=== PATIENT | female | born 1960 | race African-American/Black ===

== ENCOUNTER 2016-06-08 17:40 | Emergency (ER) | payer OTHER ==
--- NOTE | 2016-06-08 17:42 | PDOC ---
History of Present Illness - General History Source: Patient Exam Limitations: No Limitations - History of Present Illness Initial Comments: 06/08/16 18:13 The patient is a 55 year old female with no PMHx who presents to the ED with abdominal cramping since yesterday. She reports one episode of diarrhea yesterday. She reports nausea, but no vomiting. She also reports a headache today. She woke up with a headache in the frontal/ temporal regions, which has radiated to her left ear. She states that it feels like it moves around to the back of her head as well. She describes the headache as pressure. She took Tylenol and Aspirin with minimal relief. She currently rates her headache a 4-5/10, but before Aspirin it was a constant 8/ 10. She reports some associated lightheadedness. She denies photophobia, phonophobia. She also reports shoulder and left arm pain. She describes the pain as a tight knot/cramping pain. She denies numbness or tingling. She reports smoking 8 cigarettes daily. She denies alcohol or drug use. She denies recent URIs, she denies recent trauma or falls. PCP: Dr. Ximena Louise <Aminah Selby - Last Filed: 06/08/16 18:13> - General History Source: Patient Exam Limitations: No Limitations <Felicitas Spears - Last Filed: 06/09/16 18:59> - General Chief Complaint: Headache Stated Complaint: HEADACHE Time Seen by Provider: 06/08/16 17:41 Past History <Aminah Selby - Last Filed: 06/08/16 18:13> <Felicitas Spears - Last Filed: 06/09/16 18:59> - Past Medical History Allergies/Adverse Reactions: Allergies Allergy/AdvReac Type Severity Reaction Status Date / Time No Known Allergies Allergy Verified 06/08/16 17:41 Home Medications: Ambulatory Orders Butalb/Acetaminophen/Caffeine [Fioricet 50-300-40 mg Capsule] 1 each PO BID PRN #10 capsule 06/08/16 Review of Systems - Review of Systems Able to Perform ROS?: Yes Comments:: 06/08/16 18:14 GENERAL/CONSTITUTIONAL: No: fever, chills, weakness, loss of appetite. HEAD, EYES, EARS, NOSE AND THROAT: No: change in vision, ear pain, discharge, sore throat, throat swelling. CARDIOVASCULAR: No: chest pain, palpitations, syncope RESPIRATORY: No: cough, shortness of breath, wheezing, hemoptysis, stridor. GASTROINTESTINAL: + abdominal cramping, nausea, diarrhea. No: vomiting, rectal bleeding, constipation. GENITOURINARY: No: dysuria, hematuria, frequency, urgency, flank pain. MUSCULOSKELETAL: + left shoulder and arm pain. No: back pain, neck pain, joint pain SKIN AND BREASTS: No: lesions, pallor, rash or easy bruising. NEUROLOGIC: + headache, lightheadedness. No: paresthesias, weakness ENDOCRINE: No: unexplained weight gain or loss HEMATOLOGIC/LYMPHATIC: No: anemia, easy bleeding, swelling nodes <Aminah Selby - Last Filed: 06/08/16 18:13> *Physical Exam - Vital Signs Last Vital Signs Temp Pulse Resp BP Pulse Ox 98.4 F 64 17 159/99 97 06/08/16 17:40 06/08/16 17:40 06/08/16 17:40 06/08/16 18:10 06/08/16 17:40 - Physical Exam Comments: 06/08/16 18:14 GENERAL: The patient is in no acute distress. HEAD: Normal with no signs of trauma. EYES: PERRLA, EOMI, sclera anicteric, conjunctiva clear. ENT: Ears normal, TMs clear, nares patent, oropharynx clear without exudates. Moist mucous membranes. NECK: Normal range of motion, supple without lymphadenopathy, JVD, or masses. LUNGS: Breath sounds equal, clear to auscultation bilaterally. No wheezes, and no crackles. HEART:Regular rate and rhythm, normal S1 and S2 without murmur, rub or gallop. ABDOMEN: Soft, nontender, normoactive bowel sounds. No guarding, no rebound. EXTREMITIES: Normal range of motion, no edema. No clubbing or cyanosis. No erythema, or tenderness. NEUROLOGICAL: Cranial nerves II through XII grossly intact. Normal speech. No focal neurological deficits. MUSCULOSKELETAL: Back non-tender to palpation, no CVA tenderness SKIN: Warm, Dry, normal turgor, no rashes or lesions noted. <Aminah Selby - Last Filed: 06/08/16 18:13> Heart Score/ECG Review #1 ECG reviewed & interpreted by me at: 18:22 06/08/16 18:23 Sinus rhythm, rate of 66 bpm [place] nml RBBB No st elevations or depressions <Felicitas Spears - Last Filed: 06/09/16 18:59> ED Treatment Course - LABORATORY CBC & Chemistry Diagram: 06/08/16 18:00 06/08/16 18:00 <Aminah Selby - Last Filed: 06/08/16 18:13> - LABORATORY CBC & Chemistry Diagram: 06/08/16 18:00 06/08/16 18:00 <Felicitas Spears - Last Filed: 06/09/16 18:59> Medical Decision Making - Medical Decision Making 06/08/16 17:41 A portion of this note was documented by scribe services under my direction. I have reviewed the details of the note, within reason, and agree with the documentation with the following case summary and management plan written by me. Nursing documentation reviewed and incorporated into medical decision making 06/08/16 18:15 This is a 55 yo F presenting with a complaint of headache, ear pain, arm pain and abdominal cramping Pt states, her abdominal cramping began yesterday, followed by a large bowel movement She has persistent abdominal cramping She awoke with headache describes it as tightness, bitemporal and frontal Headache currently is 4/10, at its worse 8/10 No head trauma Mild nausea, no vomiting No neck pain or stiffness Headache radiates to the left ear Pt states over the past 6 months, she has noted intermittent headaches No fevers or chills No recent URIs On examination NEURO: Mental status: The patient is oriented x3. Cranial nerves: Cranial nerves II through XII are intact Motor: The upper extremities are 5 over 5 in all muscle groups. The lower extremities are 5 over 5 in all muscle groups. Sensation: Sensation is intact to light touch throughout. Cerebellar: [id number] is normal in both upper extremities. Heel-knee- humphrey is normal in both lower extremities. Reflexes: 2+ and symmetric in the upper and lower extremities. Gait: Normal. Heel and toe walking are normal. Tandem gait is normal. Left TM nml No midline neck pain or tenderness No nuchal rigidity Will do labs Will give pain medications Will do CT head given new onset headaches An EKG was performed Head CT negative Will discharge to home Follow up with PMD or Neuro Excedrine as needed Fiorecet if pain severe <Felicitas Spears - Last Filed: 06/09/16 18:59> *DC/Admit/Observation/Transfer - Attestations Scribe Attestion: 06/08/16 18:14 Documentation prepared by Aminah Selby, acting as medical director occupational health for Felicitas Spears MD. <Aminah Selby - Last Filed: 06/08/16 18:13> - Discharge Dispostion Admit: No <Felicitas Spears - Last Filed: 06/09/16 18:59> Diagnosis at time of Disposition: Headache Qualifiers: Headache type: tension-type Headache chronicity pattern: acute headache Intractability: not intractable Qualified Code(s): G44.209 - Tension-type headache, unspecified, not intractable - Discharge Dispostion Disposition: HOME Condition at time of disposition: Stable - Prescriptions Prescriptions: Butalb/Acetaminophen/Caffeine [Fioricet 50-300-40 mg Capsule] 1 each PO BID PRN #10 capsule PRN Reason: headaches - Referrals Referrals: Ximena Louise MD [Primary Care Provider] - Virgilio Navarro MD [Staff Physician] - - Patient Instructions Printed Discharge Instructions: DI for Headache, DI for Migraine Additional Instructions: Ms. Whitten Thank you for coming in to the ER today I am sorry that you were having a headache Please, take the medications as we discussed (Excedrin when headache is not so severe and Fiorecet for severe headaches) Be careful not to take Fiorecet of a daily basis Please stay hydrated Please follow up with your primary care physician and a neurologist (Dr Garcia 's group) Return to the ER for any other concerns or complaints
[2016-06-08 17:49] VITALS: BMI 37.1
[2016-06-08] MEDS ORDERED: MAGNESIUM SULF 50% (8.12 MEQ/2 ML-1 GM VIAL) IVPB ONE (17:56)
[2016-06-08] MEDS ORDERED: IBUPROFEN 800 MG/8 ML IJ IVPB ONE ×2 (17:56→18:07)
[2016-06-08] MEDS ORDERED: METOCLOPRAMIDE HCL INJECTION 10 MG/2 ML VIAL IVPB ONE (17:56)
[2016-06-08] MEDS ORDERED: SODIUM CHLORIDE 1,000 ML IV SCH (18:00)
[2016-06-08 18:07] VITALS: BP 159/99; PULSE 64; TEMP 98.4
[2016-06-08 18:30] LABS: RDW 13.1 % (11.6-15.6)
[2016-06-08 18:33] LABS: BASOPHIL 1.1 % (0-2.0); EOSINOPHIL 2.4 % (0-4.5); MCH 28.5 pg (25.7-33.7); MCHC 33.4 g/dl (32.0-36.0); MEAN CELL VOLUME 85.2 fl (80-96); MEAN PLT VOLUME 11.9 fl (7.5-11.1); NEUTROPHILS 62.7 % (42.8-82.8); PLATELET COUNT 220 K/MM3 (134-434); WHITE BLOOD COUNT 9.6 K/mm3 (4.0-10.0)
[2016-06-08 18:37] LABS: ALBUMIN 4.4 g/dl (3.5-5.0); ALK PHOS 67 U/L (32-92); ANION GAP 3 (8-16); BILIRUBIN,TOTAL 0.3 mg/dl (0.2-1.0); CALCIUM 9.4 mg/dl (8.4-10.2); CO2 27 mmol/L (22-28); CREATININE 0.9 mg/dl (0.6-1.3); GLUCOSE,RANDOM 96 mg/dl (74-106); SGOT/AST 21 U/L (10-42); SGPT/ALT 21 U/L (10-40); TOT PROT 7.3 g/dl (6.4-8.3)
--- NOTE | 2016-06-09 18:29 | EKG ---
Test Reason : Blood Pressure : / mmHG Vent. Rate : 066 BPM Atrial Rate : 066 BPM P-R Int : 160 ms QRS Dur : 138 ms QT Int : 462 ms P-R-T Axes : 040 038 030 degrees QTc Int : 484 ms NORMAL SINUS RHYTHM RIGHT BUNDLE BRANCH BLOCK ABNORMAL ECG NO PREVIOUS ECGS AVAILABLE Confirmed by DORIAN TEJEDA, JERRI ([id number]) on 06/09/2016 6:29:24 PM Referred By: MD BAILEY Confirmed By:JERRI ALARCON MD
== END 2016-06-08 19:36 | disposition home or self-care (01) ==
LOC: FER 17:40
PROC: 3E033GC Introduction of Other Therapeutic Substance into Peripheral Vein, Percutaneous Approach (ICD-10-PCS; principal; 2016-06-08)
DX: G44.209 Tension-type headache, unspecified, not intractable (principal)
CPT/HCPCS: 36415; 70450-TC; 80053; 85025; 93005; 99282-25

== ENCOUNTER 2022-08-06 17:08 | Emergency (ER) | payer OTHER ==
[2022-08-06 18:16] LABS: HEMATOCRIT 43.3 % (32.4-45.2); HEMOGLOBIN 14.3 G/dL (10.7-15.3); MCH 29.5 pg (25.7-33.7); MEAN CELL VOLUME 89.6 fl (80-96); MEAN PLT VOLUME 11.4 fl (7.5-11.1); PLATELET COUNT 203.7 10^3/uL (134-434); RBC 4.83 10^6/uL (3.60-5.2); RDW 14.2 % (11.6-15.6); WHITE BLOOD COUNT 8.5 10^3/uL (4.0-10.8)
[2022-08-06 18:27] LABS: ALBUMIN 4.2 g/dl (3.4-5.0); CALCIUM 9.1 mg/dl (8.5-10); CREATININE 0.9 mg/dl (0.55-1.3); POTASSIUM 4.3 mmol/L (3.5-5.1); TOT PROT 7.1 g/dl (6.4-8.2)
[2022-08-06 18:31] LABS: PLATELET ESTIMATE ADEQUATE
[2022-08-06 18:59] LABS: EPITHELIAL CELLS FEW /hpf
[2022-08-06 21:16] VITALS: BMI 40.6
[2022-08-07 08:25] LABS: MAGNESIUM 1.9 mg/dL (1.8-2.4); POTASSIUM 3.9 mmol/L (3.5-5.1)
[2022-08-07 09:20] VITALS: TEMP 98.3
[2022-08-07 09:45] LABS: HEMOGLOBIN 13.6 GM/dL (10.7-15.3); MCH 28.9 pg (25.7-33.7); MCHC 33.1 g/dl (32.0-36.0); MEAN CELL VOLUME 87.1 fl (80-96); MEAN PLT VOLUME 10.9 fl (7.5-11.1); PLATELET COUNT 163 10^3/uL (134-434); RBC 4.71 M/mm3 (3.60-5.2); RDW 14.4 % (11.6-15.6); WHITE BLOOD COUNT 7.9 K/mm3 (4.0-10.0)
[2022-08-07] MEDS ORDERED: ASPIRIN 81 MG CHEWABLE TABLETS PO SCH (10:00)
[2022-08-07] MEDS ORDERED: VALSARTAN 80 MG TABLET PO SCH (10:00)
[2022-08-07] MEDS ORDERED: HYDROCHLOROTHIAZIDE 12.5 MG CAPSULE (FP) PO SCH (10:00)
[2022-08-07] MEDS ORDERED: PATIENT'S OWN MEDICATION (NON-FORMULARY) (Valsartan/Hydrochlorothiazide 1 TAB Tablet) PO SCH (10:00)
[2022-08-07] MEDS ORDERED: REGADENOSON 0.4 MG/5 ML PRE-FILLED SYRINGE IVPUSH ONE ×2 (13:59→14:15)
[2022-08-07] MEDS ORDERED: AMINOPHYLLINE 250 MG/10 ML VIAL IVPUSH ONE (14:45)
[2022-08-07] MEDS ORDERED: AMINOPHYLLINE 250 MG/10 ML VIAL ONE (14:52)
[2022-08-07] MEDS ORDERED: SUMAtriptan SUCCINATE 50 MG TABLET PO ONE (20:15)
[2022-08-07 22:24] VITALS: BP 153/72; PULSE 59; RESP 17
== END 2022-08-07 20:50 | disposition home or self-care (01) ==
LOC: FER 17:08 → FM/S 19:59
PROVIDERS: ADMIT Internal Medicine
PROC: 3E033GC Introduction of Other Therapeutic Substance into Peripheral Vein, Percutaneous Approach (ICD-10-PCS; principal; 2022-08-06)
DX: R07.89 Other chest pain (principal); I10 Essential (primary) hypertension; E78.5 Hyperlipidemia, unspecified; F17.210 Nicotine dependence, cigarettes, uncomplicated; I45.10 Unspecified right bundle-branch block; E66.01 Morbid (severe) obesity due to excess calories; Z68.41 Body mass index [BMI] 40.0-44.9, adult; R73.03 Prediabetes
CPT/HCPCS: 0241U-QW; 36415; 70450-TC; 71046-TC-FY; 78452-TC; 80048; 80053; 80061; 81003; 81015; 83735; 84443; 84484; 85025; 85027; 93005; 93017; 99285-25; A9502; G0378; J2785